=== PATIENT | female | born 1965 ===

== ENCOUNTER 2017-05-19 09:09 | Outpatient (CLI) | payer OTHER ==
[2017-05-19] MEDS ORDERED: COZAAR25 MG PO (14:34)
[2017-05-19] MEDS ORDERED: PAMELOR25 MG PO (14:35)
[2017-05-19] MEDS ORDERED: ZOLOFT50 MG PO (14:35)
[2017-05-19] MEDS ORDERED: CATAFLAM PO (14:36)
== END 2017-05-19 09:41 | disposition home or self-care (01) ==
LOC: LAB 09:09
DX: K64.4 Residual hemorrhoidal skin tags (principal); K64.5 Perianal venous thrombosis; K62.89 Other specified diseases of anus and rectum; K59.09 Other constipation; Z12.11 Encounter for screening for malignant neoplasm of colon

== ENCOUNTER 2017-05-19 09:28 | Outpatient (CLI) | payer OTHER ==
[2017-05-19] MEDS ORDERED: COZAAR25 MG PO (14:34)
[2017-05-19] MEDS ORDERED: ZOLOFT50 MG PO (14:35)
[2017-05-19] MEDS ORDERED: PAMELOR25 MG PO (14:35)
[2017-05-19] MEDS ORDERED: CATAFLAM PO (14:36)
== END 2017-05-19 09:39 | disposition home or self-care (01) ==
LOC: RAD 09:28
DX: K64.4 Residual hemorrhoidal skin tags (principal); K64.1 Second degree hemorrhoids; K64.5 Perianal venous thrombosis; K62.89 Other specified diseases of anus and rectum; K59.09 Other constipation; Z12.11 Encounter for screening for malignant neoplasm of colon

== ENCOUNTER 2017-05-26 05:27 | Day surgery (SDC) | payer OTHER ==
[~2017-05-26 05:27] MED LIST: CATAFLAM PO; COZAAR25 MG PO; PAMELOR25 MG PO; ZOLOFT50 MG PO
[2017-05-27] MEDS ORDERED: COLACE100 MG PO (08:15)
[2017-05-27] MEDS ORDERED: PERCOCET 5-3251 EACH PO (08:15)
== END 2017-05-26 11:50 | disposition home or self-care (01) ==
LOC: AMB-ENDOS 05:27
DX: D12.7 Benign neoplasm of rectosigmoid junction (principal); Z12.11 Encounter for screening for malignant neoplasm of colon